=== PATIENT | male | born 1990 | race Two or more races ===

== ENCOUNTER 2018-11-30 15:21 | Emergency (ER) | payer SELFPAY ==
[~2018-11-30] VITALS: Ht 167.6 cm; Wt 69.0 kg
[2018-11-30] MEDS ORDERED: ACETAMINOPHEN 325MG TABLET PO ONE (16:45)
[2018-11-30] MEDS ORDERED: ACETAMINOPHEN 500MG TABLET PO NR (17:00)
[2018-11-30 18:48] VITALS: BP 138/81
== END 2018-11-30 18:48 | disposition home or self-care (01) ==
LOC: ER 15:21
DX: S13.4XXA Sprain of ligaments of cervical spine, initial encounter (principal); M62.838 Other muscle spasm; V43.52XA Car driver injured in collision with other type car in traffic accident, initial encounter; Y93.9 Activity, unspecified; Y92.410 Unspecified street and highway as the place of occurrence of the external cause
CPT/HCPCS: 71046; 72040; 99283